=== PATIENT | male | born 1970 | race Caucasian/White ===

== ENCOUNTER 2017-11-30 10:18 | Emergency (ER) | payer OTHER ==
[2017-11-30 10:28] VITALS: BP 115/71; PULSE 93; RESP 18; TEMP 97.4; O2SAT 97
[2017-11-30] MEDS ORDERED: Naproxen 550 mg Tab PO STA (10:41)
[2017-11-30] MEDS ORDERED: Naproxen 550 mg Tab PO ONE (11:05)
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
== END 2017-11-30 11:36 | disposition home or self-care (01) ==
LOC: C.ER 10:18
DX: S83.91XA Sprain of unspecified site of right knee, initial encounter (principal); V49.50XA Passenger injured in collision with unspecified motor vehicles in traffic accident, initial encounter